=== PATIENT | male | born 1960 | race Caucasian/White ===

== ENCOUNTER 2019-09-19 19:01 | Emergency (ER) | payer OTHER ==
[~2019-09-19] VITALS: Ht 185.4 cm; Wt 120.2 kg
[2019-09-19 19:16] VITALS: BP 147/77
--- NOTE | 2019-09-19 19:21 | NUR ---
PT AMBULATED TO LOBBY TO A/W BED PLACEMENT
--- NOTE | 2019-09-19 19:51 | NUR ---
PT AMBULATED TO BED #11
--- NOTE | 2019-09-19 20:00 | NUR ---
58 Y/O MALE PRESENTED TO ED C/O LEFT KNEE PAIN X 2 WEEKS. PT DENIES ANY TRAUMA/FALL. PT STATES HE WOKE UP X 2 WEEKS AND IT STARTED HURTING. RATE KNEE PAIN 9/10 THROBBING/SHARP NONRADIATING , LOCATED AT ANTERIOR OF LEFT KNEE.PT DENIES NUMBNESS AND TINGLING IN LOWER EXTREMITY. PT STATES HE HAS BEEN APPLYING ICE AND IBUPROFEN W/ NO RELIEF. NO REDNESS OR SWELLING NOTED AT SITE. A/O X 4 , RR EVEN AND UNLABORED, + BL PEDAL PULSES . PT RESTING IN BED LOCKED AND IN LOWEST POSITION, HOB ELEVATED, SIDE RAIL X1. PMH: HTN, DM NKA
--- NOTE | 2019-09-19 20:03 | NUR ---
DEANDRE PISANO AT BEDSIDE.
[2019-09-19] MEDS ORDERED: KETOROLAC 60 MG/2 ML VIAL IM ONE (20:10)
[2019-09-19 20:35] VITALS: BP 145/77
== END 2019-09-19 20:35 | disposition home or self-care (01) ==
LOC: MED 19:01
DX: M25.562 Pain in left knee (principal); E11.9 Type 2 diabetes mellitus without complications; I10 Essential (primary) hypertension
CPT/HCPCS: 96372; 99283; J1885

== ENCOUNTER 2019-12-31 22:29 | Emergency (ER) | payer OTHER ==
[~2019-12-31] VITALS: Ht 185.4 cm; Wt 124.3 kg
[2019-12-31 23:05] VITALS: BP 146/73
--- NOTE | 2019-12-31 23:14 | NUR ---
PT IS AMBULATING BACK TO THE LOBBY. STEADY GAIT. NO ACUTE DISTRESS NOTED.
--- NOTE | 2019-12-31 23:40 | NUR ---
PT BEING TAKEN TO RADIOLOGY VIA W/C
--- NOTE | 2019-12-31 23:49 | NUR ---
PT RETURN FROM RADIOLOGY TO ER LOBBY
--- NOTE | 2020-01-01 00:34 | NUR ---
PT WAS SEEN IN THE TRIAGE ROOM BY SORAIDA HINTON FOR MEDICAL EVALUATION
--- NOTE | 2020-01-01 00:50 | NUR ---
pt is being w/c back to the lobby from radiology
--- NOTE | 2020-01-01 01:05 | NUR ---
PT AMBULATED TO [facility] WITH STEADY GAIT
[2020-01-01] MEDS ORDERED: KETOROLAC 30 MG/ML VIAL IM STA (01:54)
--- NOTE | 2020-01-01 02:35 | NUR ---
SORAIDA AT BEDSIDE IN THE ED HALLWAY PERFORMING MEDICAL EVALUATION.
--- NOTE | 2020-01-01 02:48 | NUR ---
AIR AND GEL ANKLE STIRRUP SPLINT PLACED ON PT L ANKLE, FASTENED TO SIZE. +CSM
--- NOTE | 2020-01-01 02:48 | NUR ---
EMT AT BEDSIDE IN ED HALLWAY PLACING PT IN A SPLINT PER ERMD ORDER
[2020-01-01 03:00] VITALS: BP 118/75
--- NOTE | 2020-01-01 03:00 | NUR ---
Patient discharged with v/s stable. Written and verbal after care instructions given and explained. Patient verbalized understanding. Ambulatory with steady gait. All questions addressed prior to discharge. Advised to follow up with PMD.
== END 2020-01-01 03:00 | disposition home or self-care (01) ==
LOC: MED 22:29
DX: S93.402A Sprain of unspecified ligament of left ankle, initial encounter (principal); E11.9 Type 2 diabetes mellitus without complications; I10 Essential (primary) hypertension; W19.XXXA Unspecified fall, initial encounter; Y93.89 Activity, other specified; Y92.89 Other specified places as the place of occurrence of the external cause; Y99.8 Other external cause status
CPT/HCPCS: 29515; 73562; 73610; 73630; 96372; 99284; J1885

== ENCOUNTER 2020-06-20 18:30 | Emergency (ER) | payer OTHER ==
[~2020-06-20] VITALS: Ht 185.4 cm; Wt 122.5 kg
[2020-06-20 18:34] VITALS: BP 113/66
[2020-06-20] MEDS ORDERED: KETOROLAC 60 MG/2 ML VIAL IM ONE (18:40)
[2020-06-20] MEDS ORDERED: ACET-8386 PO (19:21)
[2020-06-20] MEDS ORDERED: IBUP-2213 PO (19:21)
[2020-06-20 19:26] VITALS: BP 113/66
== END 2020-06-20 19:26 | disposition home or self-care (01) ==
LOC: MED 18:30
DX: M25.562 Pain in left knee (principal); J44.9 Chronic obstructive pulmonary disease, unspecified; E11.9 Type 2 diabetes mellitus without complications; I10 Essential (primary) hypertension; F32.9 Major depressive disorder, single episode, unspecified
CPT/HCPCS: 96372; 99283; J1885